=== PATIENT | female | born 1935 | race Two or more races ===

== ENCOUNTER 2023-10-12 13:10 | Inpatient (IN) | payer OTHER ==
[~2023-10-12] VITALS: Ht 152.4 cm; Wt 49.9 kg
[2023-10-12] MEDS ORDERED: IRBESARTAN150 MG PO (13:24)
[2023-10-12] MEDS ORDERED: 0.9 % SODIUM CHLORIDE 1,000 ML IV STA (14:19)
[2023-10-12] MEDS ORDERED: METOCLOPRAMIDE HCL 5 MG/ML VIAL IV STA (14:20)
[2023-10-12] MEDS ORDERED: FAMOtidine 10 MG/ML (4ML VIAL) IV STA (14:21)
[2023-10-12] MEDS ORDERED: ONDANSETRON HCL 2 MG/ML VIAL IV ONE (14:30)
[2023-10-12 15:00] LABS: HEMATOCRIT 36.4 % (36.0-45.00); HEMOGLOBIN 12.1 g/dL (12.0-15.00); MEAN CELL VOLUME 82.4 fL (80.00-100.00); MEAN CORPUSCULAR HEMOGLOBIN 27.4 pg (27.00-32.0); MEAN CORPUSCULAR HGB CONC 33.2 g/dl (32.0-36.0); PLATELET COUNT 231 K/uL (150-450); RED BLOOD COUNT 4.41 M/uL (4.00-6.00); RED CELL DISTRIBUTION WIDTH 14.6 % (11.5-14.5)
[2023-10-12 15:19] LABS: PH,URINE 6.5 (5.0-8.0); URINE APPEARANCE Clear; URINE BILIRRUBIN Negative (NEGATIVE); URINE BLOOD Small; URINE COLOR Yellow; URINE GLUCOSE Negative (NEGATIVE); URINE KETONE Trace (NEGATIVE); URINE LEUKOCYTE Negative; URINE NITRATE Negative; URINE UROBILINOGEN 0.2 E.U./dl
[2023-10-12 15:23] LABS: URINE BACTERIA 27.6 uL (0.0-1933); URINE RBC 51.4 uL (0.0-20.8); URINE WBC 3.6 uL (0.0-23.2)
[2023-10-12 15:30] LABS: ALBUMIN 3.8 gm/dL (3.4-5.0); BILIRUBIN TOTAL 3.38 mg/dL (0.3-1.2); BILIRUBIN,CONJUGATED 2.22 mg/dL (0.0-0.2); BILIRUBIN,UNCONJUGATED 1.16 mg/dL (0.0-0.6); CALCIUM 9.9 mg/dL (8.5-10.1); CREATININE SERUM 0.78 mg/dL (0.55-1.02); GFR 70.19; POTASSIUM 3.33 mEq/L (3.5-5.1); TOTAL PROTEIN 8.2 gm/dL (6.4-8.2)
[2023-10-12 15:31] LABS: URINE EPITHELIAL CELLS 1.2 uL (0.0-38.8); URINE PROTEIN 100 (NEGATIVE)
[2023-10-12] MEDS ORDERED: IRBESARTAN 150 MG TABLET PO SCH (19:58)
[2023-10-13 07:37] LABS: CALCIUM 9.1 mg/dL (8.5-10.1); CREATININE SERUM 0.64 mg/dL (0.55-1.02); GFR 88.19; POTASSIUM 3.34 mEq/L (3.5-5.1)
[2023-10-13] MEDS ORDERED: KETOROLAC TROMETHAMINE 30 MG VIAL IM SCH (09:00)
[2023-10-13] MEDS ORDERED: METOCLOPRAMIDE HCL 5 MG/ML VIAL IV SCH (09:00)
[2023-10-13 10:37] LABS: HEMATOCRIT 33.4 % (36.0-45.00); HEMOGLOBIN 11.2 g/dL (12.0-15.00); MEAN CORPUSCULAR HEMOGLOBIN 27.9 pg (27.00-32.0); MEAN CORPUSCULAR HGB CONC 33.6 g/dl (32.0-36.0); PLATELET COUNT 207 K/uL (150-450); RED BLOOD COUNT 4.02 M/uL (4.00-6.00); RED CELL DISTRIBUTION WIDTH 14.2 % (11.5-14.5)
[2023-10-13] MEDS ORDERED: POTASSIUM CHLORIDE IN WATER 100 ML IV NR (15:21)
[2023-10-14] MEDS ORDERED: IPRATROPIUM BROMIDE 0.5 MG/2.5 ML AMPUL.NEB IH SCH (02:21)
== END 2023-10-14 15:31 | disposition home or self-care (01) | DRG 446 ==
LOC: ER 13:10 → SEC-K 20:11 → SURG 20:11
PROVIDERS: General Practice; Student in an Organized Health Care Education/Training Program; Surgery; ADMIT Internal Medicine; ATTEND Internal Medicine
PROC: BW28YZZ Computerized Tomography (CT Scan) of Head using Other Contrast (ICD-10-PCS; principal; 2023-10-12)
PROC: BW40ZZZ Ultrasonography of Abdomen (ICD-10-PCS; 2023-10-12)
DX: K80.10 Calculus of gallbladder with chronic cholecystitis without obstruction (principal)